=== PATIENT | male | born 1960 | race Caucasian/White ===

== ENCOUNTER 2018-01-23 11:01 | Emergency (ER) | payer BC ==
[2018-01-23] MEDS ORDERED: Lidocaine 2% EPI 1:200000 MPF*10-20 ML VIAL ONE (11:40)
[2018-01-23] MEDS ORDERED: Tetan/Diph/Pertus SYR(Tdap)* 0.5 ML SYR(BOOSTRIX) use SYR IM ONE (11:44)
--- NOTE | 2018-01-23 11:44 | ED ---
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 Patient states this occurred when he accidentally had these fingers by a log splitter. While operating the splitter, some wood split off and lacerated these fingers. Patient notes left hand numbness and tingling as well. LOC and head injury are denied. He states that he believes his tetanus is UTD but he is unsure. Patient denies fever, chills, COOPER, ear pain, sore throat , blurred vision, double vision, neck pain, CP, SOB, ABD pain, back pain, dysuria, hematuria, blood in the stool, constipation, edema, bruising, rashes. No depression reported. On triage, pain is rated 8/10, nothing is noted to aggravate/alleviate Sx. Home medications and allergies are reviewed. - History of Current Complaint Stated Complaint: LT HAND INJURY/LACERATION Hx Obtained From: Patient Mechanism of Injury: Sharp/Blunt Trauma Onset/Duration: Sudden Onset, Still Present Aggravating: Nothing Alleviating: Nothing Timing: Constant Current Severity: Severe - 8/10 Pain Intensity: 8 Pain Scale Used: 0-10 Numeric - 8/10 Associated Signs & Symptoms: Numbness, Tingling, Pain - Allergy/Home Medications Allergies/Adverse Reactions: Allergies Allergy/AdvReac Type Severity Reaction Status Date / Time No Known Allergies Allergy Verified 12/09/12 07:13 PMH/Surg Hx/FS Hx/Imm Hx Endocrine/Hematology History: Denies: Hx Diabetes Cardiovascular History: Reports: Hx Angina, Hx Hypercholesterolemia, Hx Hypertension - not on medication Denies: Hx Coronary Artery Disease, Hx Myocardial Infarction, Hx Valvular Heart Disease Respiratory History: Denies: Hx Asthma, Hx Chronic Obstructive Pulmonary Disease (COPD) Neurological History: Denies: Other Neuro Impairments/Disorders - Surgical History Surgery Procedure, Year, and Place: ablation - Immunization History Date of Tetanus Vaccine: unknown Date of Influenza Vaccine: 2011 Infectious Disease History: No Infectious Disease History: Denies: Traveled Outside the [place] in Last 30 Days - Family History Known Family History: Positive: Hypertension - Social History Alcohol Use: None Substance Use Type: Reports: None Smoking Status (MU): Never Smoked Tobacco Review of Systems Negative: Fever, Chills Positive: Other - NEGATIVE: double vision . Negative: Blurred Vision Negative: Sore Throat, Ear Ache Negative: Chest Pain Negative: Shortness Of Breath Negative: Abdominal Pain Positive: other - NEGATIVE: constipation, blood in stool . Negative: dysuria, hematuria Positive: Other - NEGATIVE: back/neck pain . Negative: Edema Positive: Other - laceration at left middle and ring finger Neurological: Other - NEGATIVE: head injury Positive: Numbness - and tingling at left hand . Negative: Headache, Syncope Negative: Depressed All Other Systems Reviewed And Are Negative: No Physical Exam - Summary Physical Exam Summary: Appearance: Alert, conversive, nontoxic appearing Skin: Warm, dry, no mottling, no rashes, no contusions; de-gloving of distal tip of left middle finger. Small amount of bone exposed. FROM at PIP and DIP joint, finger is tender to palpation. Partial unroofing of left ring finger. HEENT: EOMI, PERRL, moist mucous membranes Neck: No masses on the neck, supple Respiratory: Clear to auscultation, breath sounds present, no rales, no rhonchi , no wheezes Cardiovascular: RRR, pulses are symmetrical in both lower and upper extremities Abdomen: Soft, non-tender Bowel Sounds: Present Musculoskeletal: No CVA tenderness, no obvious deformity, moving all extremities in a grossly normal manner Neurological: A&Ox3, CN II-XII Intact, moving all extremities symmetrically Psychiatric: Anxious appearing Triage Information Reviewed: Yes Vital Signs On Initial Exam: Initial Vitals Temp Pulse Resp BP Pulse Ox 99.2 F 93 16 156/100 98 01/23/18 11:08 01/23/18 11:08 01/23/18 11:08 01/23/18 11:08 01/23/18 11:08 Vital Signs Reviewed: Yes Diagnostics - Vital Signs Vital Signs Temp Pulse Resp BP Pulse Ox 01/23/18 11:08 99.2 F 93 16 156/100 98 - Laboratory Lab Statement: Any lab studies that have been ordered have been reviewed, and results considered in the medical decision making process. - Radiology FINGER X-RAY Radiology Interpretation Completed By: Radiologist Summary of Radiographic Findings: IMPRESSION: 1. THERE HAS BEEN AMPUTATION OF THE TUFT OF THE DISTAL PHALANX OF THE THIRD DIGIT. 2. THERE IS A NONDISPLACED FRACTURE OF THE TUFT OF THE DISTAL PHALANX OF THE FOURTH. DIGIT. THIS REPORT WAS REVIEWED BY ED PHYSICIAN. Re-Evaluation - Re-Evaluation First Eval Re-Evaluation Time: 12:20 Comment: Results of x-ray was discussed with patient. Ortho consult will be done. 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 Patient states this occurred when he accidentally had these fingers by a log splitter. While operating the splitter, some wood split off and lacerated these fingers. Patient notes left hand numbness and tingling as well. LOC and head injury are denied. He states that he believes his tetanus is UTD but he is unsure. On physical exam, de-gloving of distal tip of left middle finger is noted. Small amount of bone exposed. FROM at PIP and DIP joint, finger is tender to palpation. Partial unroofing of left ring finger. Patient is anxious appearing. During ED course, patient received tetanus shot, fentanyl 50 mcg IV ONCE and cefazolin sodium/dextrose. Area was cleaned with normal saline and applied a wet dressing to finger. FINGER X-RAY: 1. THERE HAS BEEN AMPUTATION OF THE TUFT OF THE DISTAL PHALANX OF THE THIRD DIGIT. 2. THERE IS A NONDISPLACED FRACTURE OF THE TUFT OF THE DISTAL PHALANX OF THE FOURTH. DIGIT. Patient's case was discussed with Dr. Belcher. Dr. Belcher discussed the case with Dr. Pleitez, who states that patient can be discharged and follow up immediately in Dr. Pleitez's office for repair of fingers. This plan was discussed with patient, he is agreeable. Dx of left finger fracture and degloving injury of finger. - Clinical Impression Provider Diagnoses: Finger fracture, left, Degloving injury of finger - Physician Notifications Discussed Care Of Patient With: Emma Belcher Time Discussed With Above Provider: 13:20 Instructed by Provider To: Other - Patient's case was discussed with Dr. Belcher. Dr. Belcher discussed the case with Dr. Pleitez, who states that patient can be discharged and follow up immediately in Dr. Pleitez's office. Discharge - Sign-Out/Discharge Documenting (check all that apply): Patient Departure - discharge - Discharge Plan Condition: Stable Disposition: HOME Prescriptions: Cephalexin CAP* [Keflex CAP*] 500 mg PO TID #21 cap Patient Education Materials: Finger Fracture (ED) Referrals: Cal Vinson MD [Primary Care Provider] - Corie Pleitez MD [Medical Doctor] - Additional Instructions: Please go directly to the orthopedic surgeon's office immediately after discharge. Return if worse or any new symptoms. Take tylenol and motrin for pain. I sent a prescription to the pharmacy for keflex an antibiotic. - Billing Disposition and Condition Condition: STABLE Disposition: Home - Attestation Statements Document Initiated by Scribe: Yes Documenting Scribe: Edison Soliman Provider For Whom Sebastien is Documenting (Include Credential): Alejandra Joseph MD Scribe Attestation: Edison Bynum , scribed for Alejandra Joseph MD on 01/24/18 at 1004. Scribe Documentation Reviewed: Yes Provider Attestation: The documentation as recorded by the Edison lyons accurately reflects the service I personally performed and the decisions made by me, Alejandra Joseph MD
[2018-01-23] MEDS ORDERED: fentaNYL* 50 MCG/ML 2 ML VIAL (100 MCG VIAL) IV SLOW PU ONE (11:51)
[2018-01-23] MEDS ORDERED: ceFAZolin 1 GM ADVAN(*) 1 GM in NS 0.9% 50 ML* 50 ML IVPB ONE (13:15)
[2018-01-23] MEDS ORDERED: NS 0.9% 50 ML* 50 ML ONE (13:32)
[2018-01-23] MEDS ORDERED: ceFAZolin 1 GM in Dextrose (*) 1 GM/50 ML BAG IVPB ONE (14:00)
[2018-01-23 14:20] VITALS: BP 125/90
== END 2018-01-23 14:19 | disposition home or self-care (01) ==
LOC: ED 11:01
DX: S62.665A Nondisplaced fracture of distal phalanx of left ring finger, initial encounter for closed fracture (principal); S68.123A Partial traumatic metacarpophalangeal amputation of left middle finger, initial encounter; W31.2XXA Contact with powered woodworking and forming machines, initial encounter; Y92.9 Unspecified place or not applicable; Z23 Encounter for immunization
CPT/HCPCS: 73140; 90471; 90715; 96365; 96375; 99282; J0690; J3010